=== PATIENT | female | born 1975 | race Caucasian/White ===

== ENCOUNTER 2016-12-13 11:09 | Emergency (ER) | payer MEDICAID ==
[~2016-12-13] VITALS: Ht 162.6 cm; Wt 121.7 kg
[2016-12-13 15:28] VITALS: BP 142/86
== END 2016-12-13 15:28 | disposition home or self-care (01) ==
LOC: ED 11:09
DX: H66.91 Otitis media, unspecified, right ear (principal); J20.9 Acute bronchitis, unspecified; R03.0 Elevated blood-pressure reading, without diagnosis of hypertension

== ENCOUNTER 2017-01-12 10:38 | Emergency (ER) | payer MEDICAID ==
[2017-01-12 10:46] VITALS: BP 133/92
== END 2017-01-12 12:49 | disposition home or self-care (01) ==
LOC: ED 10:38
DX: R05 Cough (principal); R50.9 Fever, unspecified

== ENCOUNTER 2018-10-07 17:19 | Emergency (ER) | payer MEDICAID ==
[~2018-10-07] VITALS: Ht 162.6 cm; Wt 99.3 kg
[2018-10-07 17:23] VITALS: Ht 162.6 cm; Wt 99.3 kg
[2018-10-07 18:29] VITALS: BP 132/87
== END 2018-10-07 18:29 | disposition home or self-care (01) ==
LOC: ED 17:19
DX: J06.9 Acute upper respiratory infection, unspecified (principal); Z88.6 Allergy status to analgesic agent; Z98.890 Other specified postprocedural states